=== PATIENT | male | born 1955 | race Caucasian/White ===

== ENCOUNTER 2019-02-10 09:30 | Emergency (ER) | payer OTHER ==
[~2019-02-10] VITALS: Ht 177.8 cm; Wt 108.9 kg
[2019-02-10 10:00] LABS: BASOPHILS ABSOLUTE AUTO 0.07 K/mm3 (0.00-0.23); BASOPHILS PERCENT AUTO 1 % (0-2); EOSINOPHILS ABSOLUTE AUTO 0.08 K/mm3 (0.00-0.68); EOSINOPHILS PERCENT AUTO 1 % (0-6); Hematocrit 47.1 % (37.0-53.0); IMMATURE GRAN ABSOLUTE AUTO 0.02 K/mm3 (0.00-0.10); IMMATURE GRAN PERCENT AUTO 0 % (0-1); LYMPHOCYTES ABSOLUTE AUTO 1.86 K/mm3 (0.84-5.20); LYMPHOCYTES PERCENT AUTO 29 % (21-46); MONOCYTES ABSOLUTE AUTO 0.72 K/mm3 (0.16-1.47); MONOCYTES PERCENT AUTO 11 % (4-13); Mean Corpuscular HGB 31.5 pg (26.0-34.0); Mean Corpuscular Volume 93 fL (80-100); Mean Platelet Volume 10.8 fL (9.1-12.4); NEUTROPHILS ABSOLUTE AUTO 3.78 K/mm3 (1.96-9.15); NEUTROPHILS PERCENT AUTO 58 % (41-73); Platelet Count 218 K/mm3 (150-400); RDW Coefficient Variation 11.9 % (11.7-14.2); RDW Standard Deviation 41.2 fL (35.1-46.3); Red Blood Cell Count 5.08 M/mm3 (4.30-5.90); White Blood Cell Count 6.53 K/mm3 (4.00-11.30)
[2019-02-10 10:21] LABS: Alanine Aminotransfer (ALT/SGP 51 U/L (12-78); Albumin, Blood 3.9 g/dL (3.4-5.0); Albumin/Globulin Ratio 1.1 (0.8-1.8); Alk Phos 106 U/L (50-136); Anion Gap 8 mmol/L (6-16); Aspartate Aminotrans (AST/SGOT 49 U/L (12-37); Bilirubin, Total 0.6 mg/dL (0.1-1.0); Blood Urea Nitrogen 15 mg/dL (8-24); Bun/Creatinine Ratio 18.6 (12.0-20.0); CO2, Blood 27 mmol/L (21-32); Calcium, Blood 8.8 mg/dL (8.5-10.1); Chloride, Blood 108 mmol/L (98-108); Creatinine, Blood 0.81 mg/dL (0.60-1.20); Globulin, Blood 3.7 g/dL (2.2-4.0); Glomerular Filtration Rate >60 (60-); Glucose, Blood 140 mg/dL (70-99); Potassium, Blood 3.6 mmol/L (3.5-5.5); Sodium, Blood 143 mmol/L (136-145); Total Protein, Blood 7.6 g/dL (6.4-8.2); Troponin I <0.015 ng/mL (0.000-0.040)
[2019-02-10] MEDS ORDERED: ARIP20 PO (10:58)
[2019-02-10] MEDS ORDERED: BUPR75 PO (10:58)
[2019-02-10] MEDS ORDERED: Zocor20 MG PO (10:59)
[2019-02-10] MEDS ORDERED: MEMA5TAB PO (10:59)
[2019-02-10] MEDS ORDERED: TRAZ50 PO (10:59)
== END 2019-02-10 14:05 | disposition home or self-care (01) ==
LOC: ER 09:30
PROVIDERS: Emergency Medicine
DX: F41.9 Anxiety disorder, unspecified (principal); R25.1 Tremor, unspecified; R00.2 Palpitations
CPT/HCPCS: 36415; 71046; 80053; 84484; 85025; 93005; 93010; 99284-25

== ENCOUNTER 2021-03-29 20:15 | Emergency (ER) | payer OTHER ==
[~2021-03-29] VITALS: Ht 177.8 cm; Wt 90.7 kg
[~2021-03-29 20:15] MED LIST: ARIP20 PO; BUPR75 PO; MEMA5TAB PO; TRAZ50 PO; Zocor20 MG PO
[2021-03-29 20:56] LABS: BASOPHILS ABSOLUTE AUTO 0.07 K/mm3 (0.00-0.23); BASOPHILS PERCENT AUTO 1 % (0-2); EOSINOPHILS ABSOLUTE AUTO 0.11 K/mm3 (0.00-0.68); EOSINOPHILS PERCENT AUTO 1 % (0-6); Hematocrit 42.9 % (37.0-53.0); Hemoglobin 15.2 g/dL (13.5-17.5); IMMATURE GRAN ABSOLUTE AUTO 0.02 K/mm3 (0.00-0.10); IMMATURE GRAN PERCENT AUTO 0 % (0-1); LYMPHOCYTES ABSOLUTE AUTO 2.01 K/mm3 (0.84-5.20); LYMPHOCYTES PERCENT AUTO 24 % (21-46); MONOCYTES ABSOLUTE AUTO 0.79 K/mm3 (0.16-1.47); MONOCYTES PERCENT AUTO 9 % (4-13); Mean Corpuscular HGB 32.1 pg (26.0-34.0); Mean Corpuscular HGB Conc 35.4 g/dL (31.5-36.5); Mean Corpuscular Volume 91 fL (80-100); Mean Platelet Volume 10.9 fL (9.1-12.4); NEUTROPHILS ABSOLUTE AUTO 5.42 K/mm3 (1.96-9.15); NEUTROPHILS PERCENT AUTO 64 % (41-73); Platelet Count 252 K/mm3 (150-400); RDW Standard Deviation 39.8 fL (35.1-46.3); Red Blood Cell Count 4.73 M/mm3 (4.30-5.90); White Blood Cell Count 8.42 K/mm3 (4.00-11.30)
[2021-03-29 21:14] LABS: Alanine Aminotransfer (ALT/SGP 34 U/L (12-78); Albumin, Blood 3.6 g/dL (3.4-5.0); Albumin/Globulin Ratio 0.9 (0.8-1.8); Alk Phos 102 U/L (50-136); Anion Gap 6 mmol/L (6-16); Aspartate Aminotrans (AST/SGOT 32 U/L (12-37); Bilirubin, Total 0.4 mg/dL (0.1-1.0); Blood Urea Nitrogen 15 mg/dL (8-24); Bun/Creatinine Ratio 16.7 (12.0-20.0); CO2, Blood 28 mmol/L (21-32); Chloride, Blood 109 mmol/L (98-108); Globulin, Blood 3.9 g/dL (2.2-4.0); Glomerular Filtration Rate >60 (60-); Glucose, Blood 106 mg/dL (70-99); Potassium, Blood 3.5 mmol/L (3.5-5.5); Sodium, Blood 143 mmol/L (136-145); Total Protein, Blood 7.5 g/dL (6.4-8.2)
[2021-03-30] MEDS ORDERED: Magnesium Citr296 ML PO (01:55)
== END 2021-03-30 02:32 | disposition home or self-care (01) ==
LOC: ER 20:15
PROVIDERS: Physician Assistant
DX: E86.0 Dehydration (principal); K59.00 Constipation, unspecified; F31.9 Bipolar disorder, unspecified; Z79.899 Other long term (current) drug therapy
CPT/HCPCS: 36415; 74018; 80053; 85025; 93005; 93010; 99284-25

== ENCOUNTER 2021-11-13 18:54 | Emergency (ER) | payer OTHER ==
[~2021-11-13] VITALS: Ht 177.8 cm; Wt 105.2 kg
[~2021-11-13 18:54] MED LIST changes: +Magnesium Citr296 ML PO
[2021-11-13] MEDS ORDERED: HYDR1TAB94 PO (20:41)
== END 2021-11-13 21:00 | disposition home or self-care (01) ==
LOC: ER 18:54
DX: M25.511 Pain in right shoulder (principal); G89.29 Other chronic pain; F31.9 Bipolar disorder, unspecified; Z79.899 Other long term (current) drug therapy; M54.9 Dorsalgia, unspecified; M79.601 Pain in right arm; V19.9XXA Pedal cyclist (driver) (passenger) injured in unspecified traffic accident, initial encounter; Y92.9 Unspecified place or not applicable
CPT/HCPCS: 73030; A9270; J1885

== ENCOUNTER 2022-01-20 01:19 | Emergency (ER) | payer OTHER ==
[~2022-01-20 01:19] MED LIST changes: +HYDR1TAB94 PO
== END 2022-01-20 05:54 | disposition home or self-care (01) ==
LOC: ER 01:19
DX: S46.911A Strain of unspecified muscle, fascia and tendon at shoulder and upper arm level, right arm, initial encounter (principal); X50.0XXA Overexertion from strenuous movement or load, initial encounter; Z79.899 Other long term (current) drug therapy
CPT/HCPCS: J1885

== ENCOUNTER 2022-01-31 18:41 | Emergency (ER) | payer OTHER ==
[~2022-01-31] VITALS: Ht 177.8 cm; Wt 97.1 kg
== END 2022-01-31 21:46 | disposition home or self-care (01) ==
LOC: ER 18:41
DX: M25.511 Pain in right shoulder (principal); Z79.899 Other long term (current) drug therapy
CPT/HCPCS: 96372; 99283-25; J1885

== ENCOUNTER 2022-07-25 11:30 | Emergency (ER) | payer OTHER ==
[~2022-07-25] VITALS: Ht 177.8 cm; Wt 95.7 kg
== END 2022-07-25 13:32 | disposition home or self-care (01) ==
LOC: ER 11:30
DX: M54.50 Low back pain, unspecified (principal)
CPT/HCPCS: 96372; 99283-25; J1885

== ENCOUNTER 2022-07-28 14:40 | Emergency (ER) | payer OTHER ==
[~2022-07-28] VITALS: Ht 177.8 cm; Wt 95.2 kg
[2022-07-28] MEDS ORDERED: MAGCIT300 PO (17:38)
[2022-07-28] MEDS ORDERED: BISA5EC PO (17:38)
== END 2022-07-28 18:00 | disposition home or self-care (01) ==
LOC: ER 14:40
DX: K59.00 Constipation, unspecified (principal); Z79.899 Other long term (current) drug therapy
CPT/HCPCS: 99283

== ENCOUNTER 2022-08-29 16:14 | Emergency (ER) | payer OTHER ==
[~2022-08-29] VITALS: Ht 177.8 cm; Wt 96.2 kg
[~2022-08-29 16:14] MED LIST changes: +BISA5EC PO; +MAGCIT300 PO
== END 2022-08-29 20:52 | disposition home or self-care (01) ==
LOC: ER 16:14
DX: G89.29 Other chronic pain (principal); M54.50 Low back pain, unspecified; Z79.899 Other long term (current) drug therapy
CPT/HCPCS: 96372; 99282-25; A9270; J1885

== ENCOUNTER 2022-12-28 14:39 | Emergency (ER) | payer MEDICARE, OTHER ==
[~2022-12-28] VITALS: Ht 177.8 cm; Wt 97.5 kg
[~2022-12-28 14:39] MED LIST changes: +DIAZ2 PO; +TIZA4 PO
[2022-12-28 14:48] VITALS: BP 137/101
[2022-12-28] MEDS ORDERED: GABA300 PO (17:10)
[2022-12-28] MEDS ORDERED: ACET500 PO ×2 (17:10→17:29)
[2022-12-28] MEDS ORDERED: Robaxin750 MG PO ×2 (17:10→17:29)
[2022-12-28] MEDS ORDERED: IBUP400 PO ×2 (17:10→17:29)
== END 2022-12-28 17:30 | disposition home or self-care (01) ==
LOC: ER 14:39
DX: M54.50 Low back pain, unspecified (principal); G89.29 Other chronic pain; Z79.899 Other long term (current) drug therapy
CPT/HCPCS: 96372; 99283-25; A9270; J1885

== ENCOUNTER 2023-05-22 17:53 | Emergency (ER) | payer OTHER, MEDICARE ==
[~2023-05-22] VITALS: Ht 177.8 cm; Wt 90.7 kg
[~2023-05-22 17:53] MED LIST changes: +ACET500 PO; +GABA300 PO; +IBUP400 PO; +Robaxin750 MG PO
[2023-05-22 18:00] VITALS: BP 144/63
== END 2023-05-22 19:49 | disposition home or self-care (01) ==
LOC: ER 17:53
DX: G89.29 Other chronic pain (principal); M54.9 Dorsalgia, unspecified; Z79.899 Other long term (current) drug therapy
CPT/HCPCS: 96372; 99283-25; A9270; J1885

== ENCOUNTER → 2023-07-22 | Outpatient (CLI) | payer MEDICARE, OTHER ==
[2023-07-22 18:17] LABS: BASOPHILS ABSOLUTE AUTO 0.06 K/mm3 (0.00-0.23); BASOPHILS PERCENT AUTO 1 % (0-2); EOSINOPHILS ABSOLUTE AUTO 0.04 K/mm3 (0.00-0.68); EOSINOPHILS PERCENT AUTO 1 % (0-6); Hematocrit 46.3 % (37.0-53.0); Hemoglobin 16.1 g/dL (13.5-17.5); IMMATURE GRAN ABSOLUTE AUTO 0.04 K/mm3 (0.00-0.10); IMMATURE GRAN PERCENT AUTO 1 % (0-1); LYMPHOCYTES ABSOLUTE AUTO 1.81 K/mm3 (0.84-5.20); LYMPHOCYTES PERCENT AUTO 20 % (21-46); MONOCYTES ABSOLUTE AUTO 0.81 K/mm3 (0.16-1.47); MONOCYTES PERCENT AUTO 9 % (4-13); Mean Corpuscular HGB 30.9 pg (26.0-34.0); Mean Corpuscular HGB Conc 34.8 g/dL (31.5-36.5); Mean Corpuscular Volume 89 fL (80-100); Mean Platelet Volume 10.3 fL (9.1-12.4); NEUTROPHILS PERCENT AUTO 69 % (41-73); Platelet Count 245 K/mm3 (150-400); RDW Coefficient Variation 12.3 % (11.7-14.2); RDW Standard Deviation 39.8 fL (35.1-46.3); Red Blood Cell Count 5.21 M/mm3 (4.30-5.90); White Blood Cell Count 8.86 K/mm3 (4.00-11.30)
[2023-07-22 18:37] LABS: Albumin, Blood 3.8 g/dL (3.4-5.0); Bilirubin, Total 0.5 mg/dL (0.1-1.0); Calcium, Blood 9.3 mg/dL (8.5-10.1); Creatinine, Blood 1.11 mg/dL (0.60-1.20); Globulin, Blood 3.9 g/dL (2.2-4.0); Potassium, Blood 3.8 mmol/L (3.5-5.5); Thyroid Stimulating Hormone 1.392 uIU/mL (0.360-4.800); Total Protein, Blood 7.7 g/dL (6.4-8.2)
== END | disposition home or self-care (01) ==
LOC: LAB 18:12 → LAB SHORT 18:12
PROVIDERS: Physician Assistant Medical
DX: R10.84 Generalized abdominal pain (principal); R53.83 Other fatigue
CPT/HCPCS: 80053; 84443; 85025

== ENCOUNTER 2024-03-25 20:05 | Emergency (ER) | payer MEDICARE, OTHER ==
[~2024-03-25] VITALS: Ht 170.2 cm; Wt 81.7 kg
[~2024-03-25 20:05] MED LIST changes: +NEURONTIN300 MG PO; +QUET25 PO
[2024-03-26] MEDS ORDERED: DiphenhydrAMINE HCl 50 MG/ML 1ML Vial IV ONE (00:05)
[2024-03-26] MEDS ORDERED: Dexamethasone Sod Phos 10 MG/ML 1ML VIAL IV ONE (00:05)
[2024-03-26] MEDS ORDERED: Prochlorperazine Edisylate 10 mg Vial IV ONE (00:05)
[2024-03-26] MEDS ORDERED: NS 1,000 ML IV SCH (00:05)
[2024-03-26] MEDS ORDERED: Acetaminophen 500 MG Tab PO ONE (00:05)
[2024-03-26 00:32] LABS: BASOPHILS ABSOLUTE AUTO 0.04 K/mm3 (0.00-0.23); BASOPHILS PERCENT AUTO 1 % (0-2); EOSINOPHILS ABSOLUTE AUTO 0.08 K/mm3 (0.00-0.68); EOSINOPHILS PERCENT AUTO 1 % (0-6); Hematocrit 43.6 % (37.0-53.0); IMMATURE GRAN ABSOLUTE AUTO 0.03 K/mm3 (0.00-0.10); IMMATURE GRAN PERCENT AUTO 0 % (0-1); LYMPHOCYTES PERCENT AUTO 25 % (21-46); MONOCYTES ABSOLUTE AUTO 0.84 K/mm3 (0.16-1.47); MONOCYTES PERCENT AUTO 11 % (4-13); Mean Corpuscular HGB 31.1 pg (26.0-34.0); Mean Corpuscular HGB Conc 34.4 g/dL (31.5-36.5); Mean Corpuscular Volume 91 fL (80-100); Mean Platelet Volume 10.1 fL (9.1-12.4); NEUTROPHILS ABSOLUTE AUTO 4.78 K/mm3 (1.96-9.15); NEUTROPHILS PERCENT AUTO 62 % (41-73); Platelet Count 233 K/mm3 (150-400); RDW Coefficient Variation 12.4 % (11.7-14.2); RDW Standard Deviation 40.8 fL (35.1-46.3); Red Blood Cell Count 4.82 M/mm3 (4.30-5.90); White Blood Cell Count 7.67 K/mm3 (4.00-11.30)
[2024-03-26 00:50] LABS: Anion Gap 10 mmol/L (3-11); Blood Urea Nitrogen 16 mg/dL (8-24); Bun/Creatinine Ratio 21.9 (12.0-20.0); CO2, Blood 25 mmol/L (21-32); Chloride, Blood 111 mmol/L (98-108); Creatinine, Blood 0.73 mg/dL (0.60-1.20); Ethanol (Alcohol), Blood, Med <3 mg/dL; Glomerular Filtration Rate 99 (60-); Glucose, Blood 108 mg/dL (70-99); Potassium, Blood 3.9 mmol/L (3.5-5.5); Sodium, Blood 142 mmol/L (136-145)
[2024-03-26 00:55] LABS: Source, Urine Clean Catch
[2024-03-26] MEDS ORDERED: LORazepam 2 MG/ML 1ML Injection IV ONE (00:55)
[2024-03-26 00:57] LABS: Bilirubin, Urine Neg (Neg); Blood, Urine Neg (Neg); Glucose Qualitative, Urine Neg (Neg); Ketones, Urine Neg (Neg); Leukocyte Esterase, Urine Neg (Neg); Nitrite, Urine Neg (Neg); Protein, Urine Neg (Neg); Specific Gravity, Urine 1.025 (1.003-1.022); Urobilinogen, Urine NORM (Normal)
[2024-03-26 01:06] LABS: Appearance, Urine Clear (Clear); Color, Urine Yellow (P-Yellow)
[2024-03-26 01:08] LABS: U Amphetamine Screen Not Detected; U Barbituate Screen Not Detected; U Benzodiazapine Screen Not Detected; U Buprenorphine Screen Not Detected; U Cannabinoids Screen Not Detected; U Cocaine Screen Not Detected; U Methadone Screen Not Detected; U Methamphetamine Screen Not Detected; U Opiates Screen Not Detected; U Oxycodone Screen Not Detected; U Phencyclidine Screen Not Detected
[2024-03-26 08:06] VITALS: BP 140/112
== END 2024-03-26 08:18 | disposition home or self-care (01) ==
LOC: ER 20:05
PROVIDERS: Student in an Organized Health Care Education/Training Program
DX: R51.9 Headache, unspecified (principal); M54.9 Dorsalgia, unspecified; F03.90 Unspecified dementia, unspecified severity, without behavioral disturbance, psychotic disturbance, mood disturbance, and anxiety; Z55.6 Problems related to health literacy; Z79.899 Other long term (current) drug therapy
CPT/HCPCS: 70450; 71045; 80048; 80320; 81003; 82947; 83880; 84484; 85025; 85379; 93005; 93010; 96361; 96374; 96375; 99285-25; A9270; J0780; J1100; J1200; J2060; J7030

== ENCOUNTER 2024-04-16 06:39 | Day surgery (SDC) | payer OTHER ==
[~2024-04-16] VITALS: Ht 177.8 cm; Wt 101.7 kg
[~2024-04-16 06:39] MED LIST changes: +ACET500; +DOXE10 PO; +Lactated Ringer's 1,000 ML IV ONE; +MELO7.5 PO
[2024-04-16] MEDS ORDERED: Lactated Ringer's 1,000 ML IV ONE (07:29)
[2024-04-16] MEDS ORDERED: Midazolam HCl 1MG / ML 2ML Vial ONE (07:32)
[2024-04-16] MEDS ORDERED: FentaNYL Citrate 50 MCG/ML 2 ML Injection ONE (07:32)
[2024-04-16] MEDS ORDERED: Lidocaine 1%-Epineph 1:100000 20 ML MDV ONE (07:46)
--- NOTE | 2024-04-16 08:01 | NUR ---
04/16/24 0801 Moni Santiago BEIR BLOCK PLACED IN RIGHT HAND, 20G, FLUSHED WITH 10ML NS. PT TOLERATED BEIR BLOCK PLACEMENT WELL. DR ESQUEDA ASSISTED DR LEMON WITH A BEDSIDE INJECTION OF LIDOCAINE 1% WITH EPI 1:100,000. 8ML INJECTED BY DR ESQUEDA. TIME OUT DONE BY RN PRIOR TO INJECTION.
[2024-04-16] MEDS ORDERED: CeFAZolin Sodium 1000 mg Vial ONE (08:07)
[2024-04-16] MEDS ORDERED: Ketorolac Tromethamine 30mg Vial ONE (08:11)
[2024-04-16 08:47] VITALS: BP 145/78
== END 2024-04-16 09:12 | disposition home or self-care (01) ==
LOC: ORSCSDS 06:39
PROVIDERS: Orthopaedic Surgery
PROC: 01N50ZZ Release Median Nerve, Open Approach (ICD-10-PCS; principal; 2024-04-16 08:15)
DX: G56.01 Carpal tunnel syndrome, right upper limb (principal); Z79.899 Other long term (current) drug therapy
CPT/HCPCS: J0690; J1885; J2250; J3010; J7120

== ENCOUNTER 2024-09-27 20:01 | Emergency (ER) | payer OTHER ==
[~2024-09-27] VITALS: Ht 177.8 cm; Wt 72.6 kg
[~2024-09-27 20:01] MED LIST changes: -Lactated Ringer's 1,000 ML IV ONE
[2024-09-27 20:51] LABS: BASOPHILS ABSOLUTE AUTO 0.08 K/mm3 (0.00-0.23); BASOPHILS PERCENT AUTO 1 % (0-2); EOSINOPHILS ABSOLUTE AUTO 0.01 K/mm3 (0.00-0.68); EOSINOPHILS PERCENT AUTO 0 % (0-6); Hematocrit 49.3 % (37.0-53.0); Hemoglobin 17.6 g/dL (13.5-17.5); IMMATURE GRAN ABSOLUTE AUTO 0.05 K/mm3 (0.00-0.10); IMMATURE GRAN PERCENT AUTO 0 % (0-1); LYMPHOCYTES PERCENT AUTO 14 % (21-46); MONOCYTES ABSOLUTE AUTO 1.29 K/mm3 (0.16-1.47); MONOCYTES PERCENT AUTO 11 % (4-13); Mean Corpuscular HGB 31.3 pg (26.0-34.0); Mean Corpuscular HGB Conc 35.7 g/dL (31.5-36.5); Mean Corpuscular Volume 88 fL (80-100); Mean Platelet Volume 10.2 fL (9.1-12.4); NEUTROPHILS ABSOLUTE AUTO 8.58 K/mm3 (1.96-9.15); NEUTROPHILS PERCENT AUTO 74 % (41-73); Platelet Count 291 K/mm3 (150-400); RDW Standard Deviation 38.3 fL (35.1-46.3); Red Blood Cell Count 5.63 M/mm3 (4.30-5.90); White Blood Cell Count 11.61 K/mm3 (4.00-11.30)
[2024-09-27 21:18] LABS: Alanine Aminotransfer (ALT/SGP 46 U/L (12-78); Albumin, Blood 4.3 g/dL (3.4-5.0); Albumin/Globulin Ratio 1.1 (0.8-1.8); Alk Phos 122 U/L (50-136); Anion Gap 11 mmol/L (3-11); Aspartate Aminotrans (AST/SGOT 64 U/L (12-37); Blood Urea Nitrogen 27 mg/dL (8-24); CO2, Blood 23 mmol/L (21-32); Calcium, Blood 9.6 mg/dL (8.5-10.1); Chloride, Blood 104 mmol/L (98-108); Creatinine, Blood 0.97 mg/dL (0.60-1.20); Glomerular Filtration Rate 85 (60-); Glucose, Blood 186 mg/dL (70-99); Potassium, Blood 3.7 mmol/L (3.5-5.5); Sodium, Blood 134 mmol/L (136-145); Total Protein, Blood 8.3 g/dL (6.4-8.2)
[2024-09-27 22:47] LABS: Ethanol (Alcohol), Blood, Med <3 mg/dL
[2024-09-27 22:57] LABS: Base Excess Venous 0.6 mmol/L; Bicarbonate Venous 24.9 mmol/L (24.0-30.0); PCO2 Venous 39.6 mmHg (38-42); pH Blood Venous 7.41 (7.34-7.37)
[2024-09-27 23:07] LABS: Source, Urine Clean Catch
[2024-09-27] MEDS ORDERED: NS 1,000 ML IV SCH (23:15)
[2024-09-27 23:16] LABS: Bilirubin, Urine Neg (Neg); Blood, Urine Neg (Neg); Glucose Qualitative, Urine Neg (Neg); Ketones, Urine Neg (Neg); Leukocyte Esterase, Urine Neg (Neg); Nitrite, Urine Neg (Neg); Protein, Urine 2+ (Neg); Specific Gravity, Urine 1.025 (1.003-1.022); Urobilinogen, Urine 1+ (Normal)
[2024-09-27] MEDS ORDERED: TraZODone HCl 50 MG Tab PO ONE (23:20)
[2024-09-27] MEDS ORDERED: Acetaminophen 325 MG TABLET PO ONE (23:20)
[2024-09-27] MEDS ORDERED: Gabapentin 300 MG Cap PO ONE (23:20)
[2024-09-27 23:22] LABS: Appearance, Urine Clear (Clear); Color, Urine Yellow (P-Yellow)
[2024-09-27 23:33] LABS: Amorphous Light (0-Heavy); Bacteria Rare /hpf; Mucus Light (0-Heavy); Red Blood Cells, Urine Not Seen /hpf (0-2); Squamous Epithelial Cells Rare /hpf (Few); White Blood Cells, Urine 0-2 /hpf (0-5)
[2024-09-27 23:44] LABS: U Amphetamine Screen Not Detected; U Barbituate Screen Not Detected; U Benzodiazapine Screen Not Detected; U Buprenorphine Screen Not Detected; U Cannabinoids Screen Not Detected; U Cocaine Screen Not Detected; U Methadone Screen Not Detected; U Methamphetamine Screen Not Detected; U Opiates Screen Not Detected; U Phencyclidine Screen Not Detected
[2024-09-27 23:45] LABS: U Oxycodone Screen Not Detected
[2024-09-28 02:52] VITALS: BP 125/75
== END 2024-09-28 02:52 | disposition home or self-care (01) ==
LOC: ER 20:01
PROVIDERS: Emergency Medicine
DX: F44.89 Other dissociative and conversion disorders (principal); F03.90 Unspecified dementia, unspecified severity, without behavioral disturbance, psychotic disturbance, mood disturbance, and anxiety; R73.9 Hyperglycemia, unspecified; D72.829 Elevated white blood cell count, unspecified; Z59.89 Other problems related to housing and economic circumstances; Z88.8 Allergy status to other drugs, medicaments and biological substances; Z88.5 Allergy status to narcotic agent; Z79.891 Long term (current) use of opiate analgesic; Z79.899 Other long term (current) drug therapy; Z79.1 Long term (current) use of non-steroidal anti-inflammatories (NSAID)
CPT/HCPCS: 70450; 76705; 80053; 80320; 81001; 82140; 82803; 83690; 84443; 84484; 85025; 93005; 93010; 99285-25; A9270; J7030

== ENCOUNTER 2024-11-25 14:55 | Emergency (ER) | payer OTHER ==
[~2024-11-25] VITALS: Ht 177.8 cm; Wt 90.7 kg
[2024-11-25] MEDS ORDERED: FentaNYL Citrate 50 MCG/ML 2 ML Injection IV ONE (15:05)
[2024-11-25] MEDS ORDERED: Ondansetron HCl 2 MG / ML 2ML Vial IV ONE ×2 (15:05→16:00)
[2024-11-25 15:30] LABS: BASOPHILS ABSOLUTE AUTO 0.05 K/mm3 (0.00-0.23); BASOPHILS PERCENT AUTO 1 % (0-2); EOSINOPHILS ABSOLUTE AUTO 0.14 K/mm3 (0.00-0.68); EOSINOPHILS PERCENT AUTO 2 % (0-6); Hematocrit 43.7 % (37.0-53.0); Hemoglobin 15.2 g/dL (13.5-17.5); IMMATURE GRAN ABSOLUTE AUTO 0.03 K/mm3 (0.00-0.10); IMMATURE GRAN PERCENT AUTO 0 % (0-1); LYMPHOCYTES ABSOLUTE AUTO 3.12 K/mm3 (0.84-5.20); LYMPHOCYTES PERCENT AUTO 37 % (21-46); MONOCYTES ABSOLUTE AUTO 0.81 K/mm3 (0.16-1.47); MONOCYTES PERCENT AUTO 10 % (4-13); Mean Corpuscular HGB 31.6 pg (26.0-34.0); Mean Corpuscular HGB Conc 34.8 g/dL (31.5-36.5); Mean Corpuscular Volume 91 fL (80-100); Mean Platelet Volume 10.9 fL (9.1-12.4); NEUTROPHILS ABSOLUTE AUTO 4.29 K/mm3 (1.96-9.15); NEUTROPHILS PERCENT AUTO 51 % (41-73); Platelet Count 236 K/mm3 (150-400); RDW Coefficient Variation 12.4 % (11.7-14.2); RDW Standard Deviation 40.8 fL (35.1-46.3); Red Blood Cell Count 4.81 M/mm3 (4.30-5.90); White Blood Cell Count 8.44 K/mm3 (4.00-11.30)
[2024-11-25 15:43] LABS: Albumin, Blood 3.6 g/dL (3.4-5.0); Bilirubin, Total 0.3 mg/dL (0.1-1.0); Bun/Creatinine Ratio 20.2 (12.0-20.0); Calcium, Blood 8.5 mg/dL (8.5-10.1); Creatinine, Blood 1.04 mg/dL (0.60-1.20); Globulin, Blood 3.6 g/dL (2.2-4.0); Potassium, Blood 3.9 mmol/L (3.5-5.5); Total Protein, Blood 7.2 g/dL (6.4-8.2)
[2024-11-25] MEDS ORDERED: Morphine Sulfate 4 MG/1 ML Injection IV ONE ×2 (16:00→18:55)
[2024-11-26] MEDS ORDERED: OxyCODONE HCL 5 MG TAB PO PRN (01:55)
[2024-11-26] MEDS ORDERED: TraZODone HCl 50 MG Tab PO ONE (02:10)
[2024-11-26] MEDS ORDERED: Morphine Sulfate 4 MG/1 ML Injection IV ONE ×2 (07:30→09:30)
[2024-11-26] MEDS ORDERED: HYDR1TAB94 PO (10:06)
[2024-11-26] MEDS ORDERED: DOCU100 PO (10:06)
[2024-11-26 12:33] VITALS: BP 135/81
== END 2024-11-26 13:30 | disposition home or self-care (01) ==
LOC: ER 14:55
PROVIDERS: Emergency Medicine
DX: S12.120A Other displaced dens fracture, initial encounter for closed fracture (principal); S01.21XA Laceration without foreign body of nose, initial encounter; S60.212A Contusion of left wrist, initial encounter; V29.49 Motorcycle driver injured in collision with other motor vehicles in traffic accident; Z88.8 Allergy status to other drugs, medicaments and biological substances; Z88.5 Allergy status to narcotic agent; Z79.2 Long term (current) use of antibiotics; Z79.899 Other long term (current) drug therapy
CPT/HCPCS: 70450; 71260; 72125; 73110; 74177; 80053; 85025; 96374-59; 96375; 96376; 99285-25; A9270; J2270; J2405; J3010; L0160; Q9967

== ENCOUNTER 2025-04-02 23:18 | Emergency (ER) | payer MEDICARE ==
[~2025-04-02] VITALS: Ht 165.1 cm; Wt 88.5 kg
[~2025-04-02 23:18] MED LIST changes: +DOCU100 PO; +HYDHCL25 PO; +IBUP600 PO; +KETO10 PO
[2025-04-02] MEDS ORDERED: Ondansetron HCl 2 MG / ML 2ML Vial IV ONE (23:30)
[2025-04-02] MEDS ORDERED: FentaNYL Citrate 50 MCG/ML 2 ML Injection IV ONE (23:30)
[2025-04-02 23:37] LABS: BASOPHILS ABSOLUTE AUTO 0.09 K/mm3 (0.00-0.23); BASOPHILS PERCENT AUTO 1 % (0-2); EOSINOPHILS ABSOLUTE AUTO 0.03 K/mm3 (0.00-0.68); EOSINOPHILS PERCENT AUTO 0 % (0-6); Hematocrit 45.1 % (37.0-53.0); Hemoglobin 15.4 g/dL (13.5-17.5); IMMATURE GRAN ABSOLUTE AUTO 0.05 K/mm3 (0.00-0.10); IMMATURE GRAN PERCENT AUTO 0 % (0-1); LYMPHOCYTES ABSOLUTE AUTO 2.58 K/mm3 (0.84-5.20); LYMPHOCYTES PERCENT AUTO 23 % (21-46); MONOCYTES ABSOLUTE AUTO 1.15 K/mm3 (0.16-1.47); MONOCYTES PERCENT AUTO 10 % (4-13); Mean Corpuscular HGB Conc 34.1 g/dL (31.5-36.5); Mean Corpuscular Volume 90 fL (80-100); NEUTROPHILS ABSOLUTE AUTO 7.31 K/mm3 (1.96-9.15); NEUTROPHILS PERCENT AUTO 65 % (41-73); NRBC ABSOLUTE 0.00 K/mm3 (0.00-0.02); NRBC Auto 0.0 /100 WBC (0.0-0.2); Platelet Count 415 K/mm3 (150-400); RDW Coefficient Variation 12.1 % (11.7-14.2); RDW Standard Deviation 39.7 fL (35.1-46.3)
[2025-04-02 23:52] LABS: Anion Gap 10.0 mmol/L (3-11); Blood Urea Nitrogen 16.0 mg/dL (8-24); CO2, Blood 28.0 mmol/L (21-32); Calcium, Blood 9.6 mg/dL (8.5-10.1); Chloride, Blood 102.0 mmol/L (98-108); Creatinine, Blood 0.93 mg/dL (0.60-1.20); Glucose, Blood 128.0 mg/dL (70-99); Potassium, Blood 3.9 mmol/L (3.5-5.5); Sodium, Blood 136.0 mmol/L (136-145)
[2025-04-03] MEDS ORDERED: Lidocaine 4% 1 Patch TOP ONE (01:50)
[2025-04-03] MEDS ORDERED: Morphine Sulfate 4 MG/1 ML Injection IV ONE (03:15)
[2025-04-03] MEDS ORDERED: HYDROmorphone HCl/Pf 1MG SYR IV PRN (08:40)
[2025-04-03 12:15] VITALS: BP 134/77
[2025-04-03] MEDS ORDERED: RX Prepack 6 Tabs Oxycodone 5mg UD ONE (13:25)
== END 2025-04-03 14:25 | disposition home or self-care (01) ==
LOC: ER 23:18
PROVIDERS: Emergency Medicine
DX: G89.18 Other acute postprocedural pain (principal); M54.50 Low back pain, unspecified; Z79.899 Other long term (current) drug therapy; Z88.5 Allergy status to narcotic agent; Z88.8 Allergy status to other drugs, medicaments and biological substances
CPT/HCPCS: 72132; 72158; 80048; 85025; 85651; 86141; 96374-59; 96375; 99284-25; A9270; A9579; J1171; J2270; J2405; J3010; Q9967

== ENCOUNTER 2025-04-15 12:43 | Emergency (ER) | payer MEDICARE ==
[~2025-04-15] VITALS: Ht 180.3 cm; Wt 93.0 kg
[2025-04-15 12:47] VITALS: BP 151/83
[2025-04-15 13:20] LABS: BASOPHILS ABSOLUTE AUTO 0.06 K/mm3 (0.00-0.23); BASOPHILS PERCENT AUTO 1 % (0-2); EOSINOPHILS ABSOLUTE AUTO 0.10 K/mm3 (0.00-0.68); EOSINOPHILS PERCENT AUTO 2 % (0-6); Hematocrit 41.7 % (37.0-53.0); Hemoglobin 14.4 g/dL (13.5-17.5); IMMATURE GRAN ABSOLUTE AUTO 0.02 K/mm3 (0.00-0.10); IMMATURE GRAN PERCENT AUTO 0 % (0-1); LYMPHOCYTES ABSOLUTE AUTO 1.71 K/mm3 (0.84-5.20); LYMPHOCYTES PERCENT AUTO 29 % (21-46); MONOCYTES ABSOLUTE AUTO 0.87 K/mm3 (0.16-1.47); MONOCYTES PERCENT AUTO 15 % (4-13); Mean Corpuscular HGB Conc 34.5 g/dL (31.5-36.5); Mean Corpuscular Volume 90 fL (80-100); NEUTROPHILS ABSOLUTE AUTO 3.18 K/mm3 (1.96-9.15); NEUTROPHILS PERCENT AUTO 54 % (41-73); NRBC ABSOLUTE 0.00 K/mm3 (0.00-0.02); NRBC Auto 0.0 /100 WBC (0.0-0.2); Platelet Count 250 K/mm3 (150-400); RDW Coefficient Variation 12.4 % (11.7-14.2); RDW Standard Deviation 40.7 fL (35.1-46.3)
[2025-04-15 13:46] LABS: Alanine Aminotransfer (ALT/SGP 27.0 U/L (12-78); Albumin, Blood 3.8 g/dL (3.4-5.0); Albumin/Globulin Ratio 1.0 (0.8-1.8); Anion Gap 8.0 mmol/L (3-11); Aspartate Aminotrans (AST/SGOT 25.0 U/L (12-37); Bilirubin, Total 0.6 mg/dL (0.1-1.0); Blood Urea Nitrogen 16.0 mg/dL (8-24); CO2, Blood 26.0 mmol/L (21-32); Calcium, Blood 9.5 mg/dL (8.5-10.1); Chloride, Blood 105.0 mmol/L (98-108); Creatinine, Blood 0.88 mg/dL (0.60-1.20); Globulin, Blood 3.8 g/dL (2.2-4.0); Glucose, Blood 116.0 mg/dL (70-99); Potassium, Blood 4.3 mmol/L (3.5-5.5); Sodium, Blood 135.0 mmol/L (136-145); Total Protein, Blood 7.6 g/dL (6.4-8.2)
[2025-04-16] MEDS ORDERED: BUPRENORPHINE HC8 MG SL (00:25)
== END 2025-04-15 16:33 | disposition left against medical advice (07) ==
LOC: ER 12:43
PROVIDERS: Physician Assistant
DX: Z53.21 Procedure and treatment not carried out due to patient leaving prior to being seen by health care provider (principal); R25.1 Tremor, unspecified
CPT/HCPCS: 80053; 85025; 99282

== ENCOUNTER 2025-04-15 21:16 | Emergency (ER) | payer MEDICARE ==
[~2025-04-15] VITALS: Ht 177.8 cm; Wt 93.0 kg
[2025-04-15 22:33] VITALS: BP 115/79
[2025-04-16] MEDS ORDERED: BUPRENORPHINE HC8 MG SL (00:25)
== END 2025-04-16 00:30 | disposition home or self-care (01) ==
LOC: ER 21:16
DX: F11.23 Opioid dependence with withdrawal (principal); M54.50 Low back pain, unspecified; G89.29 Other chronic pain; R25.1 Tremor, unspecified; R45.1 Restlessness and agitation; Z79.899 Other long term (current) drug therapy; Z88.8 Allergy status to other drugs, medicaments and biological substances
CPT/HCPCS: 99284; A9270; J0571